=== PATIENT | female | born 1950 | race Two or more races ===

== ENCOUNTER 2017-08-04 12:14 | Day surgery (SDC) | END 2017-08-04 19:12 | disposition home or self-care (01) ==

== ENCOUNTER 2019-01-16 06:20 | Day surgery (SDC) | payer OTHER, MEDICAID ==
[~2019-01-16] VITALS: Ht 152.4 cm; Wt 54.2 kg
[2019-01-16] VITALS (9 sets, daily range): BP systolic 127–156; BP diastolic 70–87; PULSE 90–94; RESP 13–22; Ht 152.4 cm; Wt 54.2 kg
[~2019-01-16 06:20] MED LIST: ATORVASTATIN; GLIPIZIDE; LOSARTAN POTASSIUM; METFORMIN
[2019-01-16] MEDS ORDERED: LIDOCAINE 2% (SDV) 5 ML INJ ONE (09:54)
[2019-01-16] MEDS ORDERED: PROPOFOL 40 ML ONE (09:54)
[2019-01-16] MEDS ORDERED: PROPOFOL 200 MG INJ ONE (09:54)
== END 2019-01-16 11:17 | disposition home or self-care (01) ==
LOC: GIL 06:20
PROVIDERS: ATTEND Internal Medicine Gastroenterology
DX: I85.00 Esophageal varices without bleeding (principal); K20.9 Esophagitis, unspecified; E11.9 Type 2 diabetes mellitus without complications; I10 Essential (primary) hypertension
CPT/HCPCS: 82962; 88305; 88312